=== PATIENT | male | born 1980 | race Caucasian/White ===

== ENCOUNTER 2017-02-12 12:39 | Emergency (ER) | payer BC ==
[~2017-02-12] VITALS: Ht 185.4 cm; Wt 106.8 kg
[~2017-02-12 12:39] MED LIST: AMBI10TA PO; CYCL10TA PO; IBUP1TAB7 PO; LEXA10TA PO; OMEP10CA PO; ZOFR4TAB3 SL
[2017-02-12 12:40] VITALS: BP 146/87; PULSE 65; RESP 14; TEMP 99.2; O2SAT 99
[2017-02-12 13:28] VITALS: BP 117/67; PULSE 68; RESP 17; TEMP 98.3; O2SAT 99
[2017-02-12] MEDS ORDERED: LORA-474 PO (13:31)
[2017-02-12] MEDS ORDERED: NEXI40CA PO (13:31)
[2017-02-12 13:32] LABS: AUTOMATED NEUTROPHIL # 6.9 TH/MM3 (1.8-7.7); BASOPHIL % 0.3 % (0.0-2.0); EOSINOPHIL # 0.1 TH/MM3 (0-0.4); HEMATOCRIT 46.8 % (39.0-51.0); HEMO FLAGS DIFF FINAL; LYMPH % 20.5 % (9.0-44.0); LYMPHOCYTE # 1.9 TH/MM3 (1.0-4.8); MEAN CELL VOLUME 85.7 FL (80.0-100.0); MEAN CORPUSCULAR HEMOGLOBIN 29.4 PG (27.0-34.0); MEAN CORPUSCULAR HGB CONC 34.3 % (32.0-36.0); MONO % 5.1 % (0.0-8.0); NEUT % 73.1 % (16.0-70.0); PLATELET COUNT 198 TH/MM3 (150-450); RED BLOOD COUNT 5.46 MIL/MM3 (4.50-5.90); RED CELL DISTRIBUTION WIDTH 12.4 % (11.6-17.2); WHITE BLOOD COUNT 9.4 TH/MM3 (4.0-11.0)
[2017-02-12] MEDS ORDERED: SODIUM CHLOR 0.9% 1000 ML INJ 1,000 ML IV SCH (13:35)
[2017-02-12 13:39] VITALS: BP 117/67; PULSE 68; RESP 17; TEMP 98.3; O2SAT 99
[2017-02-12 13:40] LABS: BICARBONATE 27.2 MEQ/L (21.0-32.0); POTASSIUM 3.8 MEQ/L (3.5-5.1)
--- NOTE | 2017-02-12 13:43 | PD ---
HPI Chief Complaint: Abdominal Pain Time Seen by Provider: 13:27 Travel History International Travel<30 days: No Contact w/Intl Traveler<30days: No Traveled to known affect area: No History of Present Illness HPI 36-year-old male presents to the emergency Department with 2 day history of constipation associated with mucousy bloody, and left lower abdominal pain and cramping. Patient states one episode of vomiting yesterday contributes to straining on the bowel. Patient denies fever, chills, or urinary symptoms. Patient states diagnosis of diverticulosis. Colonoscopy he had several years ago. Patient has never had diagnosis of diverticulitis. Patient states current left lower quadrant pain is about a 6 out of 10. The scratches cramping. Patient states long history of abdominal problems, but no history of surgery, Crohn's, or colitis. He is allergic to sulfa and penicillin. PFSH Past Medical History Anxiety: Yes Depression: Yes GERD: Yes Insomnia: Yes Tetanus Vaccination: < 5 Years Past Surgical History Surgical History: No Previous Surgery Social History Alcohol Use: Yes Tobacco Use: No Substance Use: No Allergies-Medications (Allergen,Severity, Reaction): Coded Allergies: penicillin G (Unverified Allergy, Severe, 02/12/17) Sulfa (Sulfonamide Antibiotics) (Unverified Allergy, Unknown, 02/12/17) sulfamethoxazole (Unverified Allergy, Unknown, 02/12/17) trimethoprim (Unverified Allergy, Unknown, 02/12/17) Reported Meds & Prescriptions Reported Meds & Active Scripts Active Zofran (Ondansetron HCl) 4 Mg Tab 4 Mg PO Q6HR PRN Flagyl (Metronidazole) 500 Mg Tab 500 Mg PO TID 7 Days Cipro (Ciprofloxacin HCl) 500 Mg Tab 500 Mg PO BID 7 Days Ibuprofen 800 Mg Tab 800 Mg PO Q6HR PRN Flexeril (Cyclobenzaprine HCl) 10 Mg Tab 10 Mg PO TID PRN 7 Days Zofran Odt (Ondansetron Odt) 4 Mg Tab 4 Mg SL Q6HR PRN Reported Nexium (Esomeprazole DR) 40 Mg Capdr 40 Mg PO DAILY Ativan (Lorazepam) 1 Mg Tab 1 Mg PO Q8H PRN Omeprazole 10 Mg Cap 10 Mg PO DAILY Ambien (Zolpidem Tartrate) 10 Mg Tab 10 Mg PO HS PRN Lexapro (Escitalopram Oxalate) 10 Mg Tab 10 Mg PO DAILY Review of Systems Except as stated in HPI: all other systems reviewed are Neg General / Constitutional: No: Fever Eyes: No: Visual changes HENT: No: Headaches Cardiovascular: No: Chest Pain or Discomfort Respiratory: No: Shortness of Breath Gastrointestinal: Positive: Diarrhea, Abdominal Pain, Constipation, Changes in Bowel Habits, No: Nausea, Vomiting, Indigestion, Dysphagia, Loss of Appetite Genitourinary: No: Dysuria Musculoskeletal: No: Pain Skin: No Rash Neurologic: No: Weakness Psychiatric: No: Depression Endocrine: No: Polydipsia Hematologic/Lymphatic: No: Easy Bruising Physical Exam Narrative GENERAL: Patient is in no acute distress. SKIN: Warm and dry. Normal color. Normal turgor. No rash. HEAD: Atraumatic. Normocephalic. EYES: Pupils equal and round. No scleral icterus. No injection or drainage. ENT: No nasal bleeding or discharge. Mucous membranes pink and moist. Pharynx is clear. Airway is patent. NECK: Trachea midline. Supple and nontender.. CARDIOVASCULAR: Regular rate and rhythm. RESPIRATORY: No accessory muscle use. Clear to auscultation. Breath sounds equal bilaterally. GASTROINTESTINAL: Abdomen soft, mild to moderate nonspecific left lower quadrant tenderness, nondistended. No point tenderness or rebound noted. Hepatic and splenic margins not palpable. MUSCULOSKELETAL: Extremities without clubbing, cyanosis, or edema. No obvious deformities. NEUROLOGICAL: Awake and alert. No obvious cranial nerve deficits. Motor grossly within normal limits. Five out of 5 muscle strength in the arms and legs. Normal speech. PSYCHIATRIC: Appropriate mood and affect; insight and judgment normal. Data Data Last Documented VS Vital Signs Date Time Temp Pulse Resp B/P (MAP) Pulse Ox O2 Delivery O2 Flow Rate FiO2 02/12/17 16:59 71 16 140/82 (101) 100 Room Air 02/12/17 13:39 98.3 Orders Orders Complete Blood Count With Diff (02/12/17 12:56) Basic Metabolic Panel (Bmp) (02/12/17 12:56) Urinalysis - C+S If Indicated (02/12/17 13:35) Ct Abd/Pel W Iv Contrast(Rout) (02/12/17 13:35) Iv Access Insert/Monitor (02/12/17 13:35) Ecg Monitoring (02/12/17 13:35) Oximetry (02/12/17 13:35) Morphine Inj (Morphine Inj) (02/12/17 13:45) Ondansetron Inj (Zofran Inj) (02/12/17 13:45) Sodium Chlor 0.9% 1000 Ml Inj (Ns 1000 M (02/12/17 13:35) Sodium Chloride 0.9% Flush (Ns Flush) (02/12/17 13:45) Ketorolac Inj (Toradol Inj) (02/12/17 13:45) Iohexol 350 Inj (Omnipaque 350 Inj) (02/12/17 15:49) Ciprofloxacin (Cipro) (02/12/17 16:45) Metronidazole (Flagyl) (02/12/17 16:45) Ed Discharge Order (02/12/17 16:44) Labs Laboratory Tests Test 02/12/17 13:10 02/12/17 14:35 White Blood Count 9.4 TH/MM3 Red Blood Count 5.46 MIL/MM3 Hemoglobin 16.1 GM/DL Hematocrit 46.8 % Mean Corpuscular Volume 85.7 FL Mean Corpuscular Hemoglobin 29.4 PG Mean Corpuscular Hemoglobin Concent 34.3 % Red Cell Distribution Width 12.4 % Platelet Count 198 TH/MM3 Mean Platelet Volume 9.2 FL Neutrophils (%) (Auto) 73.1 % Lymphocytes (%) (Auto) 20.5 % Monocytes (%) (Auto) 5.1 % Eosinophils (%) (Auto) 1.0 % Basophils (%) (Auto) 0.3 % Neutrophils # (Auto) 6.9 TH/MM3 Lymphocytes # (Auto) 1.9 TH/MM3 Monocytes # (Auto) 0.5 TH/MM3 Eosinophils # (Auto) 0.1 TH/MM3 Basophils # (Auto) 0.0 TH/MM3 CBC Comment DIFF FINAL Differential Comment Blood Urea Nitrogen 14 MG/DL Creatinine 1.05 MG/DL Random Glucose 97 MG/DL Calcium Level 8.8 MG/DL Sodium Level 140 MEQ/L Potassium Level 3.8 MEQ/L Chloride Level 107 MEQ/L Carbon Dioxide Level 27.2 MEQ/L Anion Gap 6 MEQ/L Estimat Glomerular Filtration Rate 81 ML/MIN Urine Color YELLOW Urine Turbidity CLEAR Urine pH 5.5 Urine Specific [place] 1.032 Urine Protein TRACE mg/dL Urine Glucose (UA) NEG mg/dL Urine Ketones NEG mg/dL Urine Occult Blood NEG Urine Nitrite NEG Urine Bilirubin NEG Urine Urobilinogen LESS THAN 2.0 MG/DL Urine Leukocyte Esterase NEG Urine WBC 1 /hpf Urine Mucus MOD /lpf Microscopic Urinalysis Comment CULT NOT INDICATED MDM Medical Decision Making Medical Screen Exam Complete: Yes Emergency Medical Condition: Yes Differential Diagnosis Gastroenteritis. Colitis. Diverticulitis. Narrative Course Patient is medically stable at time of exam. Labs ordered including CBC and BMP. Lipase, and urinalysis are adequate. IV access is obtained patient is given 2 mg morphine IV as well as 4 mg Zofran IV. Patient is given 1000 mg normal saline bolus. CT of the abdomen and pelvis is ordered with IV contrast. CBC is unremarkable. BMP is unremarkable. Urinalysis unremarkable. CT of the abdomen shows early diverticulitis in the left lower colon. Patient given Cipro 500 mg by mouth as well as Flagyl 500 mg by mouth now. Patient will be continued on Cipro 500 twice a day 7 days. Patient continued on Flagyl 500 mg 3 times a day for 7 days. Patient given Zofran 4 mg every 6 hours when necessary nausea #12. Information regarding diverticulitis and appropriate diet is into the patient as well. Patient should follow-up with his primary care physician as needed. Diagnosis Primary Impression: Diverticulitis Patient Instructions: Diverticulitis (ED), Diverticulitis Diet (ED), General Instructions Departure Forms: Work Release Enter return to work date: Feb 15, 2017 Additional Instructions: Patient will be continued on Cipro 500 twice a day 7 days. Patient continued on Flagyl 500 mg 3 times a day for 7 days. Patient given Zofran 4 mg every 6 hours when necessary nausea #12. Information regarding diverticulitis and appropriate diet is into the patient as well. Patient should follow-up with his primary care physician as needed. Med/Other Pt SpecificInfo: Prescription(s) given Scripts Ondansetron (Zofran) 4 Mg Tab 4 MG PO Q6HR Y for NAUSEA OR VOMITING, #12 TAB 0 Refills Prov: Anne Alexandra DO 02/12/17 Metronidazole (Flagyl) 500 Mg Tab 500 MG PO TID for Infection for 7 Days, TAB 0 Refills Prov: Anne Alexandra DO 02/12/17 Ciprofloxacin (Cipro) 500 Mg Tab 500 MG PO BID for Infection for 7 Days, #14 TAB 0 Refills Prov: Anne Alexandra Leah LIZARRAGA 02/12/17 Disposition: 01 DISCHARGE HOME Condition: Stable Carloz Huizar Feb 12, 2017 13:43
[2017-02-12] MEDS ORDERED: ONDANSETRON HCL 4 MG/2 ML VIAL IVP ONE (13:45)
[2017-02-12] MEDS ORDERED: MORPHINE SULFATE 4 MG/ML INJ IV PUSH ONE (13:45)
[2017-02-12] MEDS ORDERED: SODIUM CHLORIDE 0.9% FLUSH 10 ML FLUSH IV FLUSH PRN (13:45)
[2017-02-12] MEDS ORDERED: KETOROLAC TROMETHAMINE 30 MG/ML (IVP) VIAL IVP ONE (13:45)
[2017-02-12 14:52] LABS: BLOOD, URINE NEG (NEG); COMMENT (UR) CULT NOT INDICATED; CULTURE IF INDICATED CULT NOT INDICATED; GLUCOSE,URINE NEG (NEG); KETONE, URINE NEG (NEG); MUCUS URINE MOD /lpf (OCC); NITRITE,URINE NEG (NEG); PH, URINE 5.5 (5.0-8.5); URINE COLOR YELLOW (YELLW/STRAW)
[2017-02-12] MEDS ORDERED: IOHEXOL 350 MG/ML 10 ML VIAL (for RAD DIAG) IVCONTRAST ONE (15:49)
--- NOTE | 2017-02-12 16:21 | RADRPT ---
EXAM DATE/TIME: 02/12/2017 15:31 [facility] COMPARISON: No previous studies available for comparison. INDICATIONS : Lower abdominal pain for 2 days with constipation IV CONTRAST: 82 cc Omnipaque 350 (iohexol) IV ORAL CONTRAST: No oral contrast ingested. RADIATION DOSE: 10.43 CTDIvol (mGy) MEDICAL HISTORY : Diverticulosis. SURGICAL HISTORY : None. ENCOUNTER: Initial ACUITY: 2 days PAIN SCALE: 6/10 LOCATION: lower quadrant TECHNIQUE: Volumetric scanning of the abdomen and pelvis was performed. Using automated exposure control and ad justment of the mA and/or kV according to patient size, radiation dose was kept as low as reasonably achievable to obtain optimal diagnostic quality images. DICOM format image data is available electro nically for review and comparison. FINDINGS: LOWER LUNGS: The visualized lower lungs are clear. LIVER: Homogeneous density without lesion. There is no dilation of the biliary tree. No calcified gallston es. SPLEEN: Normal size without lesion. PANCREAS: Within normal limits. KIDNEYS: Normal in size and shape. There is no mass, stone or hydronephrosis. ADRENAL GLANDS: Within normal limits. VASCULAR: There is no aortic aneurysm. BOWEL/MESENTERY: There is diverticular disease most prominent in the region of the sigmoid colon. Minimal pericolonic stranding is identified at the junction of the descending and sigmoid colon which may represent an ea rly diverticulitis. No free air. Appendix is identified and is radiographically normal. ABDOMINAL WALL: Within normal limits. RETROPERITONEUM: There is no lymphadenopathy. BLADDER: No wall thickening or mass. REPRODUCTIVE: Within normal limits. INGUINAL: There is no lymphadenopathy or hernia. MUSCULOSKELETAL: Within normal limits for patient age. CONCLUSION: 1. Diverticular disease in the sigmoid colon. 2. Mild pericolonic stranding at the junction of the descending and sigmoid colon characteristic of a very mild diverticulitis. . Robert Ortiz MD on February 12, 2017 at 15:58 Board Certified Radiologist. This report was verified electronically.
[2017-02-12] MEDS ORDERED: CIPR-9 PO (16:40)
[2017-02-12] MEDS ORDERED: ZOFR4TAB PO (16:40)
[2017-02-12] MEDS ORDERED: METR-1 PO (16:40)
[2017-02-12] MEDS ORDERED: metroNIDAZOLE 500 MG TAB PO ONE (16:45)
[2017-02-12] MEDS ORDERED: CIPROFLOXACIN 500 MG TAB PO ONE (16:45)
[2017-02-12 16:59] VITALS: BP 140/82; PULSE 71; RESP 16; O2SAT 100
[2017-02-12 17:24] VITALS: BP 140/82
== END 2017-02-12 17:25 | disposition home or self-care (01) ==
LOC: NEPD 12:39
DX: K57.92 Diverticulitis of intestine, part unspecified, without perforation or abscess without bleeding (principal); K21.9 Gastro-esophageal reflux disease without esophagitis; F41.9 Anxiety disorder, unspecified; F32.9 Major depressive disorder, single episode, unspecified; G47.00 Insomnia, unspecified; K59.00 Constipation, unspecified
CPT/HCPCS: 74177; 80048; 81001; 85025; 96361; 96374; 96375; 99285; J1885; J2405; J7030; Q9967